=== PATIENT | female | born 2000 | race Caucasian/White ===

== ENCOUNTER 2024-05-05 16:06 | Emergency (ER) | payer OTHER, SELFPAY ==
[2024-05-05 16:09] VITALS: BP 113/58
[2024-05-05 16:30] LABS: % Basophils 0.5 % (0-2); % Eosinophils 1.4 % (0-6); % Immature Granulocytes 0.3 % (0-0.5); % Lymphocytes 33.1 % (20.5-51.1); % Monocytes 7.6 % (1.7-9.3); % Neutrophils 57.1 % (42.2-75.2); Absolute Basophils 0.1 10^3/uL (0-0.2); Absolute Eosinophils 0.1 10^3/uL (0-0.7); Absolute Lymphocytes 3.1 10^3/uL (1.2-3.4); Absolute Monocytes 0.7 10^3/uL (0.1-0.6); Absolute Neutrophils 5.4 10^3/uL (1.4-6.5); Hemoglobin 11.3 g/dL (12.0-16.0); Mean Corp Hgb Conc. 34.2 g/dL (33.0-37.0); Mean Corpuscular Hgb 30.8 pg (27.0-31.0); Mean Corpuscular Volume 89.9 fL (81.0-99.0); Mean Platelet Volume 9.9 fL (7.4-10.4); Nucleated Red Blood Cells % 0 %; Platelet Count 246 10^3/uL (130-400); Red Blood Cell Count 3.67 10^6/uL (4.20-5.40); Red Cell Dist. Width 12.8 % (11.5-14.5); White Blood Cell Count 9.4 10^3/uL (4.8-10.8)
[2024-05-05 16:37] LABS: HCG, Serum Qualitative Screen Positive
[2024-05-05 16:44] LABS: ALT (SGPT) 12 U/L (0-35); AST (SGOT) 24 U/L (14-36); Albumin 4.4 g/dl (3.5-5.0); Alkaline Phosphatase 50 U/L (38-126); Blood Urea Nitrogen 9 mg/dl (7-17); Calcium 9.1 mg/dl (8.4-10.2); Carbon Dioxide 25 mmol/L (22-30); Chloride 100 mmol/L (98-107); Glucose 83 mg/dl (70-99); Potassium 3.7 mmol/L (3.5-5.1); Sodium 136 mmol/L (135-145); Total Bilirubin 0.4 mg/dl (0.2-1.3); Total Protein 6.6 g/dl (6.3-8.2); eGFR > 60.00
--- NOTE | 2024-05-05 18:19 | ED.GENMED ---
History of Present Illness
<Flores Roger PA-C - Last Filed: 05/05/24 22:01>
General
Chief Complaint: Problems
Source: patient
Exam Limitations: none
Time Seen by Provider: 05/05/24 18:07
Nursing documentation reviewed up to this point in time: agreed with
History of Present Illness
History of Present Illness:
Patient is a 23-year-old at approximately 6 weeks gestation presenting to the emergency department with vaginal spotting and lower abdominal cramping. Patient reports a positive at-home test about 1 week ago. She was then seen at a
free clinic about 1 week ago where they apparently saw an intrauterine . Patient has a telehealth visit scheduled with her [facility] in early May. However�this morning patient states she started with vaginal bleeding and had some lower
abdominal cramping. Bleeding is persisted throughout the day has lessened and is now more of a 'spotting'. Patient denies shortness of breath, lightheadedness/dizziness, urinary symptoms.
LMP early March.
Patient did have a miscarriage about 1 year ago.
Review of Systems
<Flores Roger PA-C - Last Filed: 05/05/24 22:01>
Review of Systems
Allergies reviewed?: Yes
All Other Systems: ROS reviewed and negative except as documented in HPI and ROS
Phy Exam
<Flores Roger PA-C - Last Filed: 05/05/24 22:01>
Physical Exam
Physical Exam:
Vitals: Patient's vital signs are stable. Afebrile
General: Patient is well appearing, no acute distress
Skin: Warm and dry, no rashes or lesions
Head: Normocephalic, atraumatic
Eyes: Sclera nonicteric. EOMs intact. No nystagmus.
Throat: Protecting airway
Neck: Normal ROM, no cervical spine tenderness, no meningismus
Cardiac: Regular rate and rhythm, no murmurs.
Pulm: Normal respiratory effort, no wheezes, rales, rhonchi heard on exam.
Abdomen: Abdomen soft and nontender. No rebound tenderness or guarding. No CVA tenderness
Extremities: No evidence of cyanosis or edema. Palpable DP pulses bilaterally
Neuro: AAOx3. Grossly intact.
Psychiatric: Normal affect.
Course
<Flores Roger PA-C - Last Filed: 05/05/24 22:01>
Orders/Labs/Results
Orders:
Orders
05/05/24 16:12
Test Result ONCE
05/05/24 16:18
Beta HCG Quantitative Urgent
Comment: ADD ON
Complete Blood Count/With Diff Urgent
Comprehensive Metabolic Panel Urgent
HCG, Serum Qualitative Screen Urgent
05/05/24 17:36
Add On- LAB Urgent
Tests Added?: beta quant
05/05/24 18:18
US W Transvaginal Urgent
Reason For Exam: vaginal bleeding, cramping
05/05/24 18:27
Type+Screen Urgent
05/05/24 19:00
ABO2 Urgent
BBK Wristband Number:
Associate notified that ABO2 has been ordered: [id number]
Date: 05/05/24
Time: 18:33
Pen Tender ID: [id number]
05/05/24 19:58
Urinalysis Reflex To Culture Urgent
Date Specimen was Collected: 05/05/24
Time Specimen was Collected: 19:15
Urine Microscopic Reflex Cult Urgent
Abnormal Lab Results
05/05/24 05/05/24
16:18 19:58
RBC 3.67 L 10^6/uL
(4.20-5.40)
Hgb 11.3 L g/dL
(12.0-16.0)
Hct 33.0 L %
(37.0-47.0)
Absolute Monos (auto) 0.7 H 10^3/uL
(0.1-0.6)
Ur Occult Blood Reflex 3+ A
(Negative)
Leukocyte Esterase Rfl Trace A
(Negative)
Urine RBC 3-6 A /HPF
(0-2)
05/05/24 16:18
05/05/24 16:18
Vital Signs
Initial and Last Documented VS:
Initial Vital Signs
Temp Pulse Resp BP Pulse Ox
98.3 F 91 18 113/58 100
05/05/24 16:09 05/05/24 16:09 05/05/24 16:09 05/05/24 16:09 05/05/24 16:09
Last Documented Vital Signs
Temp Pulse Resp BP Pulse Ox
98.3 F 91 18 113/58 100
05/05/24 16:09 05/05/24 16:09 05/05/24 20:05 05/05/24 16:09 05/05/24 16:09
Information
Weeks gestation: Weeks: (6W4D)
Location: Location: (Intrauterine)
<Annelise Layton MD - Last Filed: 05/05/24 21:31>
Orders/Labs/Results
Orders:
Orders
05/05/24 16:12
Test Result ONCE
05/05/24 16:18
Beta HCG Quantitative Urgent
Comment: ADD ON
Complete Blood Count/With Diff Urgent
Comprehensive Metabolic Panel Urgent
HCG, Serum Qualitative Screen Urgent
05/05/24 17:36
Add On- LAB Urgent
Tests Added?: beta quant
05/05/24 18:18
US W Transvaginal Urgent
Reason For Exam: vaginal bleeding, cramping
05/05/24 18:27
Type+Screen Urgent
05/05/24 19:00
ABO2 Urgent
BBK Wristband Number:
Associate notified that ABO2 has been ordered: [id number]
Date: 05/05/24
Time: 18:33
Pen Tender ID: [id number]
05/05/24 19:58
Urinalysis Reflex To Culture Urgent
Date Specimen was Collected: 05/05/24
Time Specimen was Collected: 19:15
Urine Microscopic Reflex Cult Urgent
Abnormal Lab Results
05/05/24 05/05/24
16:18 19:58
RBC 3.67 L 10^6/uL
(4.20-5.40)
Hgb 11.3 L g/dL
(12.0-16.0)
Hct 33.0 L %
(37.0-47.0)
Absolute Monos (auto) 0.7 H 10^3/uL
(0.1-0.6)
Ur Occult Blood Reflex 3+ A
(Negative)
Leukocyte Esterase Rfl Trace A
(Negative)
Urine RBC 3-6 A /HPF
(0-2)
05/05/24 16:18
05/05/24 16:18
Vital Signs
Initial and Last Documented VS:
Initial Vital Signs
Temp Pulse Resp BP Pulse Ox
98.3 F 91 18 113/58 100
05/05/24 16:09 05/05/24 16:09 05/05/24 16:09 05/05/24 16:09 05/05/24 16:09
Last Documented Vital Signs
Temp Pulse Resp BP Pulse Ox
98.3 F 91 18 113/58 100
05/05/24 16:09 05/05/24 16:09 05/05/24 20:05 05/05/24 16:09 05/05/24 16:09
<Flores Roger PA-C - Last Filed: 05/05/24 22:01>
MDM/Problems Addressed
Differential Diagnosis Includes:
Not limited to: Subchorionic hemorrhage, threatened , missed , ectopic , etc.
MDM/Problems Addressed:
23-year-old approximately 6 weeks gestation presenting with vaginal spotting and lower abdominal cramping today. No severe abdominal pain, lightheadedness, shortness of breath, dizziness. Vital stable. Physical exam as above. Patient very
well-appearing, in no apparent distress. Abdomen soft and nontender. Cardio/pulmonary assessment unremarkable. Basic labs initiated in triage with no clinically significant abnormalities. Patient does have history of miscarriage about 1 year
ago. Patient was seen at pre-clinic a week ago and believes they saw an intrauterine . Will check OB ultrasound, type and screen, urinalysis. Differential considerations include possible subchorionic hemorrhage, threatened ,
missed , etc. Patient hemodynamically stable
Update: Urine shows no evidence of infection blood type O+ no indication for RhoGAM. Preliminary read of ultrasound by vision shows live intrauterine gestation approximately 6 weeks, 4 days by measurements. Small subchorionic hemorrhage noted.
Patient has remained stable. Discussed with patient at bedside. Ultimately�bleeding may be secondary to subchronic hemorrhage versus possible threatened . Advised very close follow-up with [facility], this week. She will contact them
tomorrow. Patient is remained hemodynamically stable and states bleeding has subsided mostly. Stable for discharge home.
Chronic conditions affecting care:
N/A
Acute Exacerbation and/or Progression of Chronic Illness:
N/A
<Flores Roger PA-C - Last Filed: 05/05/24 22:01>
*Radiology
Radiology exam reviewed: radiology read reviewed (Live intrauterine gestation approximately 6 weeks, 4 days heart tones 104-117bpm)
*Pulse Oximetry
Patient hypoxic: no
*EKG
Interpreted by ED Provider?: NA
*Print Designer Interpretation
Rate: Print Designer- N/A
*Critical Care Note
Total Time (30-74mins, 75-104mins- exclusive of procedures): Not Applicable
ED Attending Note
<Flores Roger PA-C - Last Filed: 05/05/24 22:01>
-
Portions of this chart may have been created with voice recognition software.� Occasional wrong word or��sound alike� substitutions may have occurred due to the inherent limitations of voice recognition software.
<Annelise Layton MD - Last Filed: 05/05/24 21:31>
ED Attending Note
Patient seen and examined by attending physician: Yes
I performed the substantive portion of visit, reviewed & personally made and approve the management plan that is documented in note by myself or KAREN.: Yes
ED Attending Note:
23-year-old very pleasant female presents emergency department with light bleeding and lower abdominal cramping. States earlier ultrasound confirmed IUP. Unclear of her Rh status. Here on exam, bleeding is resolved, cramping has resolved.
Ultrasound consistent with IUP and subchorionic hemorrhage, Rh+. Patient will be discharged with instructions for close OB follow-up.
Discharge Plan
Departure
Patient Disposition: Home (Routine Discharge)
Date of Disposition: 05/05/24
Time of Disposition: 21:36
Patient with high blood pressure during this ER visit?: No
Condition: Good
Covid-19: Not Applicable
Discharge Problem:
Vaginal bleeding in , Subchorionic hemorrhage
Instructions: Subchorionic Bleeding, Bleeding in early
Referrals:
UNKNOWN - PT DOES,NOT KNOW [Family Provider] -
Activity Restrictions/Additional Instructions:
RETURN TO THE EMERGENCY DEPARTMENT WITH ANY PERSISTENT/WORSENING VAGINAL BLEEDING, LIGHTHEADEDNESS, SHORTNESS OF BREATH, ABDOMINAL PAIN, WORSENING IN CURRENT SYMPTOMS, OR ANY OTHER CONCERNS
-As discussed�your ultrasound did show a live intrauterine estimated around 6 weeks, 4 days. There was noted to be small subchorionic hemorrhage which may be leading to your bleeding. However�it is important you follow closely with your
[facility] for further evaluation/monitoring of your and vaginal bleeding. You should contact them on Tuesday for an appointment in the next week.
-Stay well-hydrated. Get plenty rest. You should avoid sexual intercourse until cleared by [facility].
-Follow-up with [facility] as directed above.
Monitor your symptoms closely and return to the emergency department with any acute worsening/new symptoms or any other concerns
Interventions
Interventions:
*Risk Screen - Suicide Last Done: 05/05/24 16:09
*General Assessment Last Done: 05/05/24 16:09
*Neglect/Abuse Screening Last Done: 05/05/24 16:09
ED- Fall Risk Assessment Last Done: 05/05/24 21:42
*ED COVID-19 Vaccine History Last Done: 05/05/24 20:05
*Nursing Disposition Last Done: 05/05/24 21:42
ED-Female Genitourinary Assessment Last Done: 05/05/24 18:45
Discharge Date and Time
Discharge Date/Time: 05/05/24 21:44
Print Language: SETSWANA
[2024-05-05 20:03] LABS: Urine Albumin Negative (Neg - Trace); Urine Bilirubin Negative (Negative); Urine Character Clear (Clear); Urine Color Straw; Urine Glucose Negative (Negative); Urine Ketone Negative (Negative); Urine Leukocyte Trace (Negative); Urine Nitrite Negative (Negative); Urine Occult Blood 3+ (Negative); Urine Specific Gravity 1.005 (<1.030); Urine Urobilinogen Negative (Neg - 1+)
== END 2024-05-05 21:44 | disposition home or self-care (01) ==
LOC: EMR 16:06
PROVIDERS: Physician Assistant; EMERGENCY PHYSICIAN Emergency Medicine
DX: O20.8 Other hemorrhage in early pregnancy (principal); Z3A.01 Less than 8 weeks gestation of pregnancy; R10.30 Lower abdominal pain, unspecified
CPT/HCPCS: 99284; 76801; 76817; 80053; 81003; 81015; 84702; 84703; 85025; 86850; 86900; 86901

== ENCOUNTER 2024-05-10 11:12 | Emergency (ER) | payer OTHER, SELFPAY ==
[2024-05-10 11:17] VITALS: BP 118/72
[2024-05-10 11:39] LABS: % Basophils 0.4 % (0-2); % Eosinophils 1.5 % (0-6); % Immature Granulocytes 0.3 % (0-0.5); % Monocytes 7.8 % (1.7-9.3); Absolute Eosinophils 0.1 10^3/uL (0-0.7); Absolute Lymphocytes 2.1 10^3/uL (1.2-3.4); Absolute Monocytes 0.6 10^3/uL (0.1-0.6); Absolute Neutrophils 4.7 10^3/uL (1.4-6.5); Hematocrit 32.4 % (37.0-47.0); Mean Corpuscular Volume 91.3 fL (81.0-99.0); Mean Platelet Volume 10.1 fL (7.4-10.4); Nucleated Red Blood Cells % 0 %; Platelet Count 223 10^3/uL (130-400); Red Blood Cell Count 3.55 10^6/uL (4.20-5.40); Red Cell Dist. Width 12.9 % (11.5-14.5); White Blood Cell Count 7.6 10^3/uL (4.8-10.8)
[2024-05-10 12:13] LABS: ALT (SGPT) 12 U/L (0-35); AST (SGOT) 24 U/L (14-36); Albumin 4.2 g/dl (3.5-5.0); Alkaline Phosphatase 40 U/L (38-126); Blood Urea Nitrogen 6 mg/dl (7-17); Calcium 8.8 mg/dl (8.4-10.2); Carbon Dioxide 26 mmol/L (22-30); Chloride 102 mmol/L (98-107); Glucose 70 mg/dl (70-99); Potassium 3.7 mmol/L (3.5-5.1); Sodium 137 mmol/L (135-145); Total Bilirubin 0.6 mg/dl (0.2-1.3); Total Protein 6.4 g/dl (6.3-8.2); eGFR > 60.00
[2024-05-10 12:43] VITALS: BP 99/62
[2024-05-10 12:50] VITALS: BP 99/62
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
[2024-05-10 17:15] LABS: Urine Albumin Negative (Neg - Trace); Urine Bilirubin Negative (Negative); Urine Character Clear (Clear); Urine Color Yellow; Urine Glucose Negative (Negative); Urine Ketone Negative (Negative); Urine Leukocyte 1+ (Negative); Urine Nitrite Negative (Negative); Urine Occult Blood 2+ (Negative); Urine Urobilinogen Negative (Neg - 1+)
[2024-05-10 17:40] LABS: Urine Trichomonas Moderate
[2024-05-10 17:42] LABS: Urine Bacteria Few (Negative)
== END 2024-05-10 17:33 | disposition home or self-care (01) ==
LOC: EMR 11:12
PROVIDERS: Emergency Medicine; Physician Assistant; EMERGENCY PHYSICIAN Emergency Medicine
DX: O20.8 Other hemorrhage in early pregnancy (principal); Z3A.01 Less than 8 weeks gestation of pregnancy
CPT/HCPCS: 99284; 76801; 80053; 81003; 81015; 84702; 85025; 87086